=== PATIENT | male | born 1975 | race Caucasian/White ===

== ENCOUNTER → 2022-12-20 | Outpatient (CLI) | payer BC, SELFPAY ==
--- NOTE | 2022-12-20 12:16 | LES_PTH ---
PATIENT: BETHANIE HANKS LOC: [facility] U#:[id number] AGE/SX: 47/M ROOM: RE12/20/[address]: Dr. Stephen Green MD : 1975 BED: DIS: 12/20/2022 SPEC #: [id number] RECD: 12/20/22 13:28 STATUS: TAMIE ARGENIS #: [id number] JUDSON: 12/20/22 12:[address]: Stephen Green DEPT: SURGICAL PATHOLOGY RECD BY: Desiree Flores Tissues: Skin of scalp, NOS Procedures: Surgery Specimen Level IV HEADER OPERATION: Punch biopsy posterior right scalp PRE-OP DIAGNOSIS: Neoplasm of scalp TISSUE SUBMITTED: Neoplasm posterior right scalp MICROSCOPIC DIAGNOSIS Neoplasm right posterior scalp, punch biopsy: Intradermal nevus. See comment. LATESHA:rui 12/23/2022 COMMENT The lesion is present at the deep resection margin of the specimen. MICROSCOPIC DESCRIPTION Slides are reviewed. GROSS DESCRIPTION Received is one container labeled with the patient's name and not further designated. The specimen consists of a nodular fragment of light saravia excised skin measuring 0.5 x 0.5 x 0.3 cm. The specimen is ink, bisected and totally submitted in one cassette. / AM:rui 12/20/2022 TC:1 CPT: 83912
== END | disposition home or self-care (01) ==
PROVIDERS: PCP Family Medicine; Referring Provider Family Medicine; Visit Provider Family Medicine
DX: C44.40 Unspecified malignant neoplasm of skin of scalp and neck (principal); D23.4 Other benign neoplasm of skin of scalp and neck
CPT/HCPCS: 88305